=== PATIENT | male | born 1985 | race Hispanic/Latino ===

== ENCOUNTER 2023-03-20 10:51 | Day surgery (SDC) | payer BC ==
[2023-03-19 08:51] VITALS: BMI 26.6
[~2023-03-20 10:51] MED LIST: EPINEPHrine 0.3 MG in Ophthalmic Irrigation Solution 500 ML IRR SCH
[2023-03-20] MEDS ORDERED: Dexamethasone 4 mg/ml Vial ONE (11:57)
[2023-03-20] MEDS ORDERED: fentaNYL 50 mcg/mL 1 mL Vial ONE ×2 (11:57→14:05)
[2023-03-20] MEDS ORDERED: PROPOFOL 20 ML ONE (11:57)
[2023-03-20] MEDS ORDERED: Lidocaine 2% PF 100 mg/5 ml Syringe ONE (11:57)
[2023-03-20] MEDS ORDERED: PHENYLephrine 2.5% Ophth Soln 15 ml Bottle ONE (11:58)
[2023-03-20] MEDS ORDERED: Cyclopentolate 1% Opth Drop 2 ML BOT ONE (11:58)
[2023-03-20] MEDS ORDERED: Midazolam HCl 2 mg/2 ml Vial ONE (13:18)
[2023-03-20] MEDS ORDERED: CEFAZOLIN 1 GM VIAL ONE (13:50)
[2023-03-20] MEDS ORDERED: Lidocaine 1% PF 5 ML VIAL ONE (13:50)
[2023-03-20] MEDS ORDERED: Lidocaine 4% PF 5 ML AMP ONE (13:50)
[2023-03-20] MEDS ORDERED: Triamcinolone 40 MG/ML VIAL ONE (13:50)
[2023-03-20] MEDS ORDERED: Maxitrol 0.1% Opth Oint 3.5 GM TUBE ONE (13:50)
[2023-03-20] MEDS ORDERED: Bupivacaine 0.75% 10 ML VIAL ONE (13:50)
[2023-03-20] MEDS ORDERED: Hydrocortisone Sod Succ/PF 100 mg/2 ml Vial ONE (14:05)
[2023-03-20] MEDS ORDERED: fentaNYL PF 100 MCG/2 ML SYRINGE ONE (14:44)
[2023-03-20] MEDS ORDERED: Ondansetron PF 4 MG/2 ML Vial ONE (14:45)
[2023-03-20] MEDS ORDERED: PHENYLEPHRINE-NS 100 MCG/ML 10 ML SYRINGE ONE (15:24)
[2023-03-20] MEDS ORDERED: Acetaminophen 500 MG TAB ONE (17:19)
== END 2023-03-20 18:34 | disposition home or self-care (01) ==
LOC: SDC 10:51
PROVIDERS: ATTEND Ophthalmology Retina Specialist
PROC: 08T53ZZ Resection of Left Vitreous, Percutaneous Approach (ICD-10-PCS; principal; 2023-03-20)
PROC: 08T43ZZ Resection of Right Vitreous, Percutaneous Approach (ICD-10-PCS; principal; 2023-03-20)
DX: H33.321 Round hole, right eye (principal); H33.022 Retinal detachment with multiple breaks, left eye
CPT/HCPCS: C1776; J0171; J0690; J1100; J1720; J2001; J2250; J2405; J2704; J3010; J3301; J3490

== ENCOUNTER 2023-05-01 07:31 | Day surgery (SDC) | payer BC ==
[2023-04-30 12:15] VITALS: BMI 25.7
[~2023-05-01 07:31] MED LIST changes: -EPINEPHrine 0.3 MG in Ophthalmic Irrigation Solution 500 ML IRR SCH; +Fluorouracil 100 MG, Enoxaparin 25 MG, EPINEPHrine 0.3 MG in Ophthalmic Irrigation Solu... IRR SCH
[2023-05-01] MEDS ORDERED: PHENYLephrine 2.5% Ophth Soln 15 ml Bottle ONE (07:48)
[2023-05-01] MEDS ORDERED: Cyclopentolate 1% Opth Drop 2 ML BOT ONE (07:48)
[2023-05-01] MEDS ORDERED: Scopolamine 1 mg/72 hour Patch ONE (07:48)
[2023-05-01] MEDS ORDERED: PROPOFOL 20 ML ONE (08:31)
[2023-05-01] MEDS ORDERED: fentaNYL 50 mcg/mL 1 mL Vial ONE (08:31)
[2023-05-01] MEDS ORDERED: Famotidine/PF 20 mg/2ml Vial ONE (08:32)
[2023-05-01] MEDS ORDERED: Lidocaine 2% PF 5 ML VIAL ONE (08:33)
[2023-05-01] MEDS ORDERED: Bupivacaine 0.75% 10 ML VIAL ONE (08:45)
[2023-05-01] MEDS ORDERED: Maxitrol 0.1% Opth Oint 3.5 GM TUBE ONE (08:45)
[2023-05-01] MEDS ORDERED: Lidocaine 1% PF 5 ML VIAL ONE (08:45)
[2023-05-01] MEDS ORDERED: CEFAZOLIN 1 GM VIAL ONE (08:45)
[2023-05-01] MEDS ORDERED: Lidocaine 4% PF 5 ML AMP ONE (08:45)
[2023-05-01] MEDS ORDERED: Triamcinolone 40 MG/ML VIAL ONE (08:45)
[2023-05-01] MEDS ORDERED: Ondansetron PF 4 MG/2 ML Vial ONE (09:04)
[2023-05-01] MEDS ORDERED: Dexamethasone 4 mg/ml Vial ONE (09:04)
[2023-05-01] MEDS ORDERED: Metoclopramide HCl 10 MG (2 mL) VIAL ONE (09:04)
[2023-05-01] MEDS ORDERED: Ketorolac Tromethamine 30 MG (1 mL) VIAL ONE (09:08)
== END 2023-05-01 11:20 | disposition home or self-care (01) ==
LOC: SDC 07:31
PROVIDERS: ATTEND Ophthalmology Retina Specialist
PROC: 08T53ZZ Resection of Left Vitreous, Percutaneous Approach (ICD-10-PCS; principal; 2023-05-01)
PROC: 08NF3ZZ Release Left Retina, Percutaneous Approach (ICD-10-PCS; principal; 2023-05-01)
DX: H33.002 Unspecified retinal detachment with retinal break, left eye (principal); Z88.8 Allergy status to other drugs, medicaments and biological substances
CPT/HCPCS: J0171; J0690; J1100; J1650; J1790; J1885; J2001; J2405; J2704; J2765; J3010; J3301; J3490; J9190; S0028